=== PATIENT | female | born 2005 | race Caucasian/White ===

== ENCOUNTER 2024-12-11 16:31 | Emergency (ER) | payer OTHER, SELFPAY ==
[2024-12-11 16:44] VITALS: BP 128/61; PULSE 88; RESP 18; TEMP 36.7; O2SAT 100; BMI 22.7
--- NOTE | 2024-12-11 16:47 | ED.GENADULT ---
HPI - General Adult General Chief complaint: GI Bleed Stated complaint: blood in her stool Related Data Allergies Allergy/AdvReac Type Severity Reaction Status Date / Time almond Allergy Itching Verified 12/11/24 16:49 peanut Allergy Itching Verified 12/11/24 16:49 tree nut Allergy Vomiting Verified 12/11/24 16:49 [facility] Social History Social History Advance Directives: No Advance Directives Information Provided: No Do you have a plan to hurt others: No Plan Physical Exam ED Vital Signs: BMI result Body Mass Index 22.7 Course Course Course Narrative: Medical screening exam performed. Please refer to detailed history, exam, evaluation, and management by primary provider. 19-year-old female with 1 episode of rectal bleeding with bowel movement today. Patient has a picture on phone demonstrating bright red and maroon blood, possibly some small clots. Patient with a history of constipation, possible hemorrhoids. Denies any pain, fevers chills nausea or vomiting. No anticoagulant use. JS Medical Decision Making Lab Data 12/11/24 17:29 12/11/24 17:29 Labs: Lab Results 12/11/24 12/11/24 Range/Units 17:29 18:15 WBC 7.7 (4.8-10.8) X10*3/uL RBC 4.37 (4.20-5.50) X10*6/uL Hgb 12.7 (12.0-16.0) g/dl Hct 38.0 (37.0-47.0) % MCV 87.0 (80.0-98.0) fL MCH 29.1 (27.0-33.0) pg MCHC 33.4 (31.0-35.0) g/dl RDW 12.3 (11.0-16.0) % Plt Count 324 (160-400) X10*3/uL MPV 10.7 (9.4-12.3) fL Immature Gran % (Auto) 0.3 (0.0-0.4) % Neut % (Auto) 50.6 (45-73) % Lymph % (Auto) 36.4 (20-40) % Nash % (Auto) 7.4 (2-11) % Eos % (Auto) 4.5 H (0-4) % Baso % (Auto) 0.8 (0-2) % Lymph # (Auto) 2.8 (1.2-4.9) X10*3/uL Nash # (Auto) 0.6 (0.1-1.2) X10*3/uL Eos # (Auto) 0.4 (0.0-0.4) X10*3/uL Baso # (Auto) 0.1 (0.0-0.2) X10*3/uL Abs Immat Gran (auto) 0.02 (0.00-0.03) X10*3/uL Absolute Neuts (auto) 3.9 (2.0-8.3) x10*3/uL Absolute Nucleated RBC 0.000 (0.0-0.012) X10*3/uL Nucleated RBC % (auto) 0.0 (0.0-0.2) /100WBC PT 13.2 H (10.9-12.4) SEC INR 1.2 H (0.9-1.1) Sodium 143 (135-145) mmol/L Potassium 4.3 (3.3-5.1) mmol/L Chloride 108 (96-108) mmol/L Carbon Dioxide 29 (22-29) mmol/L Anion Gap 10 L (12-20) BUN 7 L (9-16) mg/dL Creatinine 0.80 (0.5-1.4) mg/dL Estim Creat Clear Calc 105.0 Estimated GFR > 60 Random Glucose 96 (60-115) mg/dL Calcium 9.8 (8.4-10.2) mg/dL Total Bilirubin 0.3 (0.0-1.0) mg/dL AST 19 (5-31) U/L ALT 19 (0-31) U/L Alkaline Phosphatase 83 (39-117) U/L Total Protein 7.7 (6.5-8.0) g/dL Albumin 4.9 (3.5-5.0) g/dL Discharge Plan Discharge Clinical Impression: Painless rectal bleeding Patient Disposition: Left W/O Completing Treatment Discharge Date/Time: 12/11/24 21:23
[2024-12-11 17:39] LABS: MANUAL DIFF FLAG NO
[2024-12-11 17:41] LABS: Hematocrit 38.0 % (37.0-47.0); Hemoglobin 12.7 g/dl (12.0-16.0); Imm Gran Abs Auto 0.02 X10*3/uL (0.00-0.03); Imm Gran Pct Auto 0.3 % (0.0-0.4); Lymphocytes Absolute Auto 2.8 X10*3/uL (1.2-4.9); Mean Corpuscular HGB Conc 33.4 g/dl (31.0-35.0); Mean Corpuscular Hemoglobin 29.1 pg (27.0-33.0); Mean Corpuscular Volume 87.0 fL (80.0-98.0); NRBC Abs Auto 0.000 X10*3/uL (0.0-0.012); NRBC Pct Auto 0.0 /100WBC (0.0-0.2); Platelet Count 324 X10*3/uL (160-400); Red Blood Count 4.37 X10*6/uL (4.20-5.50); White Blood Count 7.7 X10*3/uL (4.8-10.8)
[2024-12-11 17:54] LABS: Alanine Aminotransferase 19 U/L (0-31); Albumin Level 4.9 g/dL (3.5-5.0); Alkaline Phosphatase 83 U/L (39-117); Anion Gap 10 (12-20); Aspartate Amino Transferase 19 U/L (5-31); Blood Urea Nitrogen 7 mg/dL (9-16); Calcium 9.8 mg/dL (8.4-10.2); Carbon Dioxide 29 mmol/L (22-29); Chloride 108 mmol/L (96-108); Creatinine Clr Calc Pharmacy 105.0; Estimated Glomerular Filt Rate > 60; Potassium 4.3 mmol/L (3.3-5.1); Sodium 143 mmol/L (135-145); Total Protein 7.7 g/dL (6.5-8.0)
[2024-12-11 18:35] LABS: INTERNATIONAL NORM RATIO 1.2 (0.9-1.1); Prothrombin Time 13.2 SEC (10.9-12.4)
--- NOTE | 2024-12-11 21:22 | PC.NURSE ---
Called pt for bed assignment at 2100, no answer, pt LWCT lost charge card clerk Jasmin made aware.
--- OUTSIDE RECORDS SUMMARY | 2024-12-11 21:23 | XMS_ITS | Encounter Summary ---
Author Organization [facility] Address [address] [place] [address] Phone Care Team Providers Care Medical Insurance Coder Name Role Phone Latasha Doyle NP Primary Care Provider [phone] Encounter Details Date Type Department Care Team (Late st Contact Info) Description 04/01/2024 Procedure Pass [facility] [address] [place] [id number] Social History Tobacco Use Types Packs/Day Years Used Date Smoking Tobacco: Never Alcohol Use Standard Drinks/Week Comments Yes 4 (1 standard drink = 0.6 oz pur e alcohol) every other weekend Education Answer Date Recorded Are you interested in more education? Not on jesu e 11/27/2022 Are you concerned about learning? Not on file 11/27/2022 No 11/27/2022 No 11/27/2022 Digital Access Answer Date Recorded No 11/27/2022 No 11/27/2022 Reliable internet access at home? Not on file 11/27/2022 Device with a working camera? Not on file Intimate Partner Violence Answer Date R ecorded Are you denied basic needs s uch as food, clothing, or medical care? No 04/01/2024 In the past 12 months have y ou been in a relationship with a person who hurts, threatens, or tries to control you? No 04/01/2024 Are you denied basic needs s uch as food, clothing, or medical care? No 04/01/2024 In the past 12 months have y ou been in a relationship with a person who hurts, threatens, or tries to control you? No 04/01/2024 Comments No Sex and Gender Information Value Date Recorded Sex Assigned at Female 12/16/2023 9:28 PM EDT Legal Sex Female 5:12 PM EST Gender Identity Female 12/16/2023 9:28 PM EDT Sexual Orientation Not on file documented as of this encounter Plan of Treatment Upcoming Encounters Date Type Department Care Team (Late st Contact Info) Description 12/22/2024 2:40 PM EDT Telemedicine [facility] Department of Orthopaedic Surgery, Sports Medicine Service [address] [facility] 4th [place] [address] Keyur Gutierrez MD [address] [facility] [place] [address] [email or web address] documented as of this encounter Visit Diagnoses Not on filedocumented in this encounter Care Teams Medical Insurance Coder Relationship Specialty Start Date End Date Latasha Doyle NP [address] [facility] [place] [address] PCP - General Nurse Practitioner 01/28/23 documented as of this encounter Additional Source Comments The information contained in this document represents components of the legal health record. It is not the complete legal health record.[facility]
--- OUTSIDE RECORDS SUMMARY | 2024-12-11 21:23 | XMS_ITS | Clinical Summary ---
Author Organization [facility] Address [address] [place] [address] Phone Care Team Providers Care Auto Damage Estimator Name Role Phone Latasha Doyle NP Primary Care Provider Allergies Active Allergy Reactions Criticality Noted Date Comments Peanut High 01/15/2009 Other Reaction(s): strong (+) SPT Tree Nuts High 01/15/2009 Other Reaction(s): strong (+) SPTvomiting and itchy tongue with cashews Medications fluticasone propionate (FLOVENT HFA) 44 mcg/actuation inhaler FLOVENT HFA 44 MCG/ACT INHA 2 Active dextroamphetamine- amphetamine (ADDERALL XR) 15 MG 24 hr capsule Take 15 mg by mouth daily as needed. Active albuterol 90 mcg/actuation inhaler Inhale 2 puffs into the lungs every 4 (four) hours as needed for wheezing. 8 g 1 5 Active dextroamphetamine- amphetamine (ADDERALL XR) 5 MG 24 hr capsuleIndications :Attention deficit hyperactivity disorder (ADHD), unspecified ADHD type Take 1 capsule (5 mg total) by mouth every morning. 30 capsule 5 Active dextroamphetamine- amphetamine (ADDERALL XR) 15 MG 24 hr capsuleIndications :Attention deficit hyperactivity disorder (ADHD), unspecified ADHD type Take 1 capsule (15 mg total) by mouth every morning. Take with 5mg XR When needed 30 capsule 5 Active EPINEPHrine 0.3 mg/0.3 mL auto-injector Inject 0.3 mL (0.3 mg total) into the muscle as needed for anaphylaxis. 2 each 1 5 Active Active Problems Problem Noted Date Diagnosed Date Juvenile osteochondrosis of tibial tuberosity Overview (02/25/2023): Added by [facility] Attention deficit hyperactiv ity disorder (ADHD), predominantly inattentive type 02/23/2021 Allergy, unspecified, initial encounter 10/31/19 13 Asthma 03/09/2008 Resolved Problems Problem Noted Date Diagnosed Date Resolved Date Alcoholism and drug addiction in family 09/15/2006 02/25/2023 Encounters Date Type Department Care Team Description 11/30/2024 Telephone Pediatrics [address] [place] [address] Sapna Givens pos covwarren wants rx has asthma (LMTCB 12/01) 11/22/2024 Telephone Pediatrics [address] [place] [address] Latasha Doyle NP GI contact needed 11/10/2024 Telephone Pediatrics [address] [place] [address] Corrine Forrester MA Well Child 11/05/2024 10:30 AM EDT Office Visit Pediatrics [address] [place] [address] Latasha Doyle NP Constipation, unspecified constipation type (Primary Dx) 11/05/2024 Telephone Pediatrics [address] [place] [address] Latasha Doyle NP 10/27/2024 Telephone Pediatrics [address] [place] [address] Latasha Doyle NP Constipation (Miralax advice, OV 11/05) 09/17/2024 4:30 PM EDT Office Visit Pediatrics [address] [place] [address] Latasha Doyle, YESSENIA Encounter for routine child health examination without abnormal findings (Primary Dx); Screening examination for STI; Mild intermittent asthma without complication; Attention deficit hyperactivity disorder (ADHD), predominantly inattentive type; Allergy, unspecified, initial encounter; Screening for mental disease/developmental disorder; Attention deficit hyperactivity disorder (ADHD), unspecified ADHD type 09/17/2024 11:40 AM EDT Office Visit [facility] Department of Orthopaedic Surgery, Sports Medicine Service [address] 4th [place] [address] Keyur Gutierrez MD Anterior cruciate ligament disruption, right, subsequent encounter (Primary Dx) from Last 3 Months Immunizations Immunization Administration Dates Next Due DTaP 09/19/2008, 6,02/27/2005,12/26,2004 DTaP-Hep B-IPV 02/27/2005,2004,2004 [id number] FORMULATION 01/14/2009 HPV9 09/09/2017,01/14/2017 Hepatitis A, Unspecified 10/30/2011 Hepatitis A, ped/adol, 2 dose 10/30/2012 Hepatitis B 2004 Hepatitis B, unspecified formulation 02/27/2005, 2004,2004 Hib, unspecified formulation 11/19/2005, 02/27/2005,2004,11/06 IPV 09/19/2008, 5,2004,11/06 Influenza Quadrivalent MDCK Preservative Free IM 12/12/2021 Influenza Quadrivalent Prese rvative Free IM 01/09/2021,12/29/2018,12/30/2017,12/31 Influenza, Unspecified Formulation 02/04,12/25/2018,12/27/2016,12/07,11/17/2008,01/09/2008,12/24/2006 ,02/27/2005 MMR 09/19/2008,11/19/2005 Meningococcal B, recombinant (MenB-FHbp) 08/20/2022,01/09/2021 Meningococcal Conjugate Quad rivalent, MenACWY-TT (MCV4) 01/09/2021 Meningococcal MCV4P 12/25/2015 Pneumococcal conjugate, PCV 7 03/06/2006 ,02/27/2005,2004,11/06 Pneumococcal, Unspecified Formulation ,02/27/2005,2004,11/06 Tdap 12/25/2015 Varicella 09/19/2008,11/16/2007 Social History Tobacco Use Types Packs/Day Years Used Date Smoking Tobacco: Never Tobacco Cessation:Counseling Given: Not Answered Alcohol Use Standard Drinks/Week Comments Yes 4 [...] PM EDT Sexual Orientation Not on file Last Filed Vital Signs Vital Sign Reading Time Taken Comments Blood Pressure 98/58 11/05/2024 10:04 AM EDT Pulse 76 11/05/2024 10:04 AM EDT Temperature 36.4 C (97.5 F) 11/05/2024 10:04 AM EDT Respiratory Rate 16 11/05/2024 10:04 AM EDT Oxygen Saturation 99% 04/01/2024 11:45 AM EST Inhaled Oxygen Concentration - - Weight 67.7 kg (149 lb 3.2 oz) 11/05/2024 10:04 AM EDT Height 168.3 cm (5' 6.25 ) 09/17/2024 4:37 PM ED T Body Mass Index 23.9 09/17/2024 4:37 PM EDT Plan of Treatment Upcoming Encounters Date Type Department Care Team (Late st Contact Info) Description 12/22/2024 2:40 PM EDT Telemedicine [facility] Department of Orthopaedic Surgery, Sports Medicine Service [address] 4th [place] [address] Keyur Gutierrez MD [address] [place] [phone] [email or web address] Health Maintenance Due Date Last Done Comments ADOLESCENT UNIVERSAL LIPID SCREENING 2021 HEPATITIS C SCREENING 2022 HIV ONE-TIME SCREENING (18-6 5 YEARS) 2022 PNEUMOCOCCAL VACCINES (0-49 years) (1 of 2 - PCV) 08/24/2023 03/06/2006, 03/06/2006, 02/27/2005, Additional history exists INFLUENZA VACCINE (#1) 2024 , 12/12/2021, 01/09/2021, Additional history exists COVID-19 VACCINE (6 - 2024-2 6 season) 2024 02/26/2023, 02/07/2022, 03/07/2021, Additional history exists PEDIATRIC ASTHMA CONTROL DARLINE T (ACT) 01/18/2025 09/17/2024 DEPRESSION SCREENING 09/17/2025 09/17/2024 DEVELOPMENTAL/BEHAVIORAL SCR EENING (PHQ, PSC, or SWYC) 09/17/2025 09/17/2024, 09/17/2024 CHLAMYDIA SCREENING 09/20/2025 09/20/2024, 09/20/2024, 09/16/2023, Additional history exists SMOKING Hx and SMOKELESS TOB ACCO SCREENING 11/05/2025 11/05/2024 COMBINED DTaP,Tdap,Td (7 - T d or Tdap) 12/24/2025 12/25/2015, 09/19/2008, 03/06/2006, Additional history exists HIB VACCINES Completed 11/19/2005, 02/08, 2004, Additional history exists MMR VACCINES Completed 09/19/2008, 11/19/2005 VARICELLA VACCINES Completed 09/19/2008, 11/16/2007 HEPATITIS A VACCINES Completed 10/30/2012, 10/30/19 12 HPV VACCINES Completed 09/09/2017, 01/14/2017 MENINGOCOCCAL VACCINES (ACWY) Completed 01/09/2021, 12/25/2015 MENINGOCOCCAL VACCINES (B) Completed 08/20/2022, Medical Devices Implanted Type Area Health Outreach Worker Device Identifier Shelf Expiration Date Model / Serial / Lot Paguate Suture [id number] Biocomposite Swivelock Double Loaded Bx/5ea - [id number] Implanted:Qty: 1 on 04/01/2024 by Keyur Gutierrez MD at [facility] Right: Knee [employer] 11/07/2025 AR-2324BCT- 2 / / [id number] Paguate Suture [id number] Biocomposite Swivelock Double Loaded Bx/5ea - [id number] Implanted:Qty: 1 on 04/01/2024 by Keyur Gutierrez MD at [facility] Right: Knee [employer] 09/06/2025 AR-2324BCT- 2 / / [id number] Screw Bone 8x25mm Interference Biosure Regenesorb Biocomposite Absorable - [id number] Implanted:Qty: 1 on 04/01/2024 by Keyur Gutierrez MD at [facility] Right: Knee [employer] [id number] 05/19/2026 [id number] / / [id number] Paguate Suture 4.71l84ow Biocomposite Swivelock Double Loaded Bx/5ea - [id number] Implanted:Qty: 1 on 04/01/2024 by Keyur Gutierrez MD at [facility] Right: Knee [employer] 09/06/2025 AR-2324BCT- 2 / / [id number] Procedures Procedure Name Priority Date/Time Associated Diagnosis Comments XR ABDOMEN 1 VIEW 11/05/2024 10: 45 AM EDT CHLAMYDIA TRACHOMATIS Routine 09/20/2024 11:12 AM EDT Screening examination for STI NEISSERIA GONORRHEAE Routine 09/20/2024 11:12 AM EDT Screening examination for STI from Last 3 Months Results * XR Abdomen 1 View (11/05/2024 10:45 AM EDT) Anatomical Region Laterality Modality Abdomen XR Diagnostic 11/05/2024 10:4 5 AM EDT Narrative 11/05/2024 11:19 AM EDT [facility] Department of Radiology ABD1V Abdomen 1 View Abdominal radiograph HISTORY: Constipation COMPARISON: None IMPRESSION: Frontal radiographs of the abdomen were performed. There is a moderate to large amount of stool throughout the entire colon and rectal vault. Findings are consistent with moderate to large fecal loading. The remaining bowel gas pattern is nonspecific. Reported By: Rodolfo Monte MD Signed By: Rodolfo Monte MD Procedure Note Rodolfo Monte MD - 11/05/2024 [facility] Department of Radiology ABD1V Abdomen 1 View Abdominal radiograph HISTORY: Constipation COMPARISON: None IMPRESSION: Frontal radiographs of the abdomen were performed. There is a moderate to large amount of stool throughout the entire colon and rectal vault. Findings are consistent with moderate to large fecal loading. The remaining bowel gas pattern is nonspecific. Reported By: Rodolfo Monte MD Signed By: Rodolfo Monte MD Latasha Doyle NP IMG XR ABDOMEN Final Result * Chlamydia Trachomatis (09/20/2024 11:12 AM EDT) Chlamydia trachomatis RNA, TMA Not Detected Not Detected [facility] Urine (Urine) 09/20/2024 11: 12 AM EDT Latasha Doyle NP [facility] Final Re sult [facility] [address] [place] [address], [facility] * Neisseria Gonorrheae (09/20/2024 11:12 AM EDT) Neisseria gonorrhoeae RNA, TMA Not Detected Not Detected [facility] Urine (Urine) 09/20/2024 11: 12 AM EDT Latasha Doyle NP AMB BACK OFFICE LABS Final Re sult [facility] [address] [place] [address], [facility] from Last [address] [place] [address] [facility] O POS EPO O POS [place] [address] [place], [place] [id number] POS EPO [address] [place], [place] [id number] POS EPO [employer] O POS EPO [employer] O POS EPO Care Teams Auto Damage Estimator Relationship Specialty Start Date End Date Latasha Doyle NP [address] [place], [place] [id number] PCP - General Nurse Practitioner 01/28/23 Additional Source Comments The information contained in this document represents components of the legal health record. It is not the complete legal health record.[facility]
--- OUTSIDE RECORDS SUMMARY | 2024-12-11 21:23 | XMS_ITS | Encounter Summary ---
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 [place] [address] GI contact needed Social History Tobacco Use Types Packs/Day Years [...] on file documented as of this encounter Progress Notes * Yuki Balbuena - 11/22/2024 5:16 PM EDT LM for mom to c/b regarding pt sx/constipation Last note 11/05/24 from AG: Reviewd XR. Advised inc Miralax to BID X 3 Days. Ex Lax before bed. Inc Fluids/Fiber. Ok to hold onPrilosec for now. Call no imps. PRN. * Júnior Zelaya - 11/22/2024 12:12 PM EDT Mom called looking for GI contact. Mom: [phone] documented in this encounter Plan of Treatment Upcoming Encounters Date Type Department Care Team (Late st Contact Info) Description 12/22/2024 2:40 PM EDT Telemedicine [facility] Department of Orthopaedic Surgery, Sports Medicine Service [address] [facility] 4th [place] [address] Keyur Gutierrez MD [address] [place], [place] [address] [place] [phone] [email or web address] documented as of this encounter Visit Diagnoses Not on filedocumented in this encounter Care Teams Legal Internship Relationship Specialty Start Date End Date Yanira Latasha, YESSENIA [address] [place] [address] PCP - General Nurse Practitioner 01/28/23 documented as of this encounter Additional Source Comments The information contained in this document represents components of the legal health record. It is not the complete legal health record.[facility]
== END 2024-12-11 21:23 | disposition left against medical advice (07) ==
PROVIDERS: Physician Assistant; Emergency Provider Emergency Medicine
DX: K62.5 Hemorrhage of anus and rectum (principal); Z79.899 Other long term (current) drug therapy
CPT/HCPCS: 36415; 80053; 85025; 85610; 99281; 99283